=== PATIENT | female | born 1985 | race Caucasian/White ===

== ENCOUNTER 2017-06-18 20:15 | Emergency (ER) | payer BC ==
[2017-06-18 20:39] VITALS: PULSE 96; BMI 36.0
--- NOTE | 2017-06-18 21:15 | PDOC ---
History of Present Illness - General Chief Complaint: Cold Symptoms Stated Complaint: COLD SYMPTOMS (23 weeks ) Time Seen by Provider: 06/18/17 20:55 History Source: Patient Exam Limitations: No Limitations - History of Present Illness Initial Comments: 06/18/17 21:11 31-year-old female currently 23 weeks presents with URI symptoms including nasal congestion, sinus pressure, sore throat, cough and bilateral ear pain. Patient has no going to shortness of breath, abdominal pain, urinary complaints and states is also here to check the baby since she states has not felt the baby move today which she states she feels on a daily basis. Patient notified her PAPERBACK MACHINE OPERATOR Dr. Patel who recommended she go to L&D following influenza swabbing. Timing/Duration: reports: other (2 days) Associated Symptoms: reports: earache, headache, nasal congestion, sore throat Past History - Travel Traveled outside of the country in the last 30 days: No - Past Medical History Allergies/Adverse Reactions: Allergies Allergy/AdvReac Type Severity Reaction Status Date / Time No Known Allergies Allergy Verified 06/18/17 20:39 Home Medications: Ambulatory Orders Vit/Iron Fum/Folic AC [ Tablet] 1 each PO DAILY 04/26/15 - Reproductive History (#): 2 Para: 1 - Immunization History Immunization Up to Date: Yes - Suicide/Smoking/Psychosocial Hx Smoking Status: Yes Smoking History: Never smoked Have you smoked in the past 12 months: No Number of Cigarettes Smoked Daily: 0 If you are a former smoker, when did you quit?: 2012 Information on smoking cessation initiated: No Hx Alcohol Use: No Drug/Substance Use Hx: No Patient Lives Alone: No Lives with/in: spouse/SO Review of Systems - Review of Systems Able to Perform ROS?: No Constitutional: No: Symptoms Reported HEENTM: Yes: Ear Pain, Nose Congestion, Throat Pain Respiratory: No: Symptoms reported Cardiac (ROS): No: Symptoms Reported ABD/GI: No: Symptoms Reported : No: Symptoms Reported Musculoskeletal: No: Symptoms Reported Integumentary: No: Symptoms Reported Neurological: No: Symptoms reported Hematologic/Lymphatic: No: Symptoms Reported *Physical Exam - Vital Signs Last Vital Signs Temp Pulse Resp BP Pulse Ox 98.6 F 96 H 16 118/67 100 06/18/17 20:37 06/18/17 20:37 06/18/17 20:37 06/18/17 20:37 06/18/17 20:37 - Physical Exam General Appearance: Yes: Nourished, Appropriately Dressed. No: Apparent Distress HEENT: positive: EOMI, ALFREDO, TMs Normal, Pharynx Normal, Nasal Congestion, Sinus Tenderness (mild frontal). negative: Normal ENT Inspection Neck: positive: Supple Respiratory/Chest: positive: Lungs Clear, Normal Breath Sounds. negative: Respiratory Distress, Accessory Muscle Use Cardiovascular: positive: Regular Rhythm, Regular Rate. negative: Murmur Integumentary: positive: Normal Color, Warm, Moist Neurologic: positive: Normal Mood/Affect, Motor Strength 5/5 (ambulatory) Medical Decision Making - Medical Decision Making 06/18/17 21:14 Patient here for evaluation of URI symptoms along with check for movement. Patient is followed by Dr. Patel and was sent here for evaluation for flu and then to go to the burn delivery patient exam appeared to have sinus pressure along with allergic rhinitis . influenza swab sent. Once results and will proceed to L&D 06/18/17 21:45 Influenza swab negative. Patient will be sent to L&D for assessment. *DC/Admit/Observation/Transfer Diagnosis at time of Disposition: Nasal congestion - Discharge Dispostion Disposition: HOME Condition at time of disposition: Good - Referrals Referrals: Tiffany Mendes MD [Staff Physician] - Sabine Abbasi MD [Primary Care Provider] - - Patient Instructions Printed Discharge Instructions: DI for Common Cold Additional Instructions: At this time the influenza swab was negative I do recommend taking Tylenol. If you Develop any discomfort along with Claritin for nasal congestion which you may purchase [id number]. You will go directly to L&D upon emergency room discharge L&D: DISCHARGE INSTRUCTIONS: REST AT HOME DIET TOLERATED INCREASE FLUID BY MOUTH CALL MD IF NEEDED RETURN TO HOSPITAL IF: REGULAR CONTRACTIONS DECREASED MOVEMENT RUPTURE OF MEMBRANES VAGINAL BLEEDING - Post Discharge Activity
[2017-06-18 22:24] VITALS: BP 122/79; TEMP 98.7
== END 2017-06-18 23:03 | disposition home or self-care (01) ==
LOC: JER 20:15
DX: O99.512 Diseases of the respiratory system complicating pregnancy, second trimester (principal); J00 Acute nasopharyngitis [common cold]; Z3A.22 22 weeks gestation of pregnancy
CPT/HCPCS: 87804; 99281-25

== ENCOUNTER 2017-10-05 10:00 | Inpatient (IN) | payer BC ==
[2017-10-05] MEDS ORDERED: ELECTROLYTE-148 SOLN 1,000 ML IV SCH ×2 (10:20→11:20)
[2017-10-05] MEDS ORDERED: CITRIC ACID/SODIUM CITRATE 30 ML UNIT-DOSE CUP PO ONE (10:20)
[2017-10-05 10:52] VITALS: BMI 41.1
--- NOTE | 2017-10-05 10:55 | HP ---
Past Medical History - Admission Chief Complaint: Here for repeat delivery History of Present Illness: 31 y/o with h/o c section X 2 here at 39 weeks for scheduled repeat delivery. complicated only by maternal obesity. Pt desires tubal sterlilization. Limitations to Obtaining History: No Limitations - Past Medical History Cardiovascular: No: AFIB, HTN Gastrointestinal: No: Constipation Hepatobiliary: No: Hepatitis B, Hepatitis C Renal/: No: Hematuria, UTI Reproductive: No: Ectopic , Fibroids, Polycystic Ovary Syndrome ...Para: 2 ... Weeks Gestation by Dates: 39 ...EDC by Dates: 10/12/17 Heme/Onc: No: Anemia Infectious Disease: No: HIV, MRSA, STD's Psych: No: Anxiety, Bipolar Endocrine: No: Diabetes Mellitus, Hyperparathyroidism, Hyperthyroidism - Past Surgical History Past Surgical History: Yes: (X2) Hx Myomectomy: No Hx Transabdominal Cerclage: No - Smoking History Smoking history: Never smoked Have you smoked in the past 12 months: No Aproximately how many cigarettes per day: 0 If you are a former smoker, when did you quit?: 2013 - Alcohol/Substance Use Hx Alcohol Use: No - Social History Usual Living Arrangement: Yes: With Spouse ADL: Independent History of Recent Travel: No Home Medications - Allergies Allergies/Adverse Reactions: Allergies Allergy/AdvReac Type Severity Reaction Status Date / Time No Known Allergies Allergy Verified 09/22/17 20:15 - Home Medications Home Medications: Ambulatory Orders Vit/Iron Fum/Folic AC [ Tablet] 1 each PO DAILY 04/26/15 Review of Systems - Review of Systems Constitutional: reports: No Symptoms Eyes: reports: No Symptoms HENT: reports: No Symptoms Neck: reports: No Symptoms Cardiovascular: reports: No Symptoms Respiratory: reports: No Symptoms Gastrointestinal: reports: No Symptoms Genitourinary: reports: No Symptoms Breasts: reports: No Symptoms Reported Musculoskeletal: reports: No Symptoms Integumentary: reports: No Symptoms Neurological: reports: No Symptoms Endocrine: reports: No Symptoms Hematology/Lymphatic: reports: No Symptoms Psychiatric: reports: No Symptoms Physical Exam - Maternity Constitutional: Yes: Well Nourished, No Distress, Calm Eyes: Yes: Conjunctiva Clear, EOM Intact HENT: Yes: Atraumatic, Normocephalic Neck: Yes: Supple, Trachea Midline Cardiovascular: Yes: Regular Rate and Rhythm Lungs: Clear to auscultation - Abdominal Exam/OB Number of Fetuses: Single Presentation: Vertex Contractions: No - Vaginal Exam/OB Presentation: Vertex/Position - Physical Exam Psychiatric: Yes: Alert, Oriented Hemorrhage Risk Assessment - Risk Factors Medium Risk Factors: Yes: Prior , uterine surgery,or multiple laparotomies, Obesity (BMI >40) High Risk Factors: Yes: None Risk Score: 2 Risk Level: High Risk Problem List - Problems (1) History of delivery Code(s): Z98.891 - HISTORY OF UTERINE SCAR FROM PREVIOUS SURGERY (2) Obesity affecting Code(s): O99.210 - OBESITY COMPLICATING , UNSPECIFIED TRIMESTER (3) Term , repeat Code(s): Z34.90 - ENCNTR FOR SUPRVSN OF NORMAL , UNSP, UNSP TRIMESTER Assessment/Plan 31 y/o with SIUP at 39 weeks for scheduled repeat section and tubal sterilization AFVSS FHTS cat 1 NPO, Juarez catheter Anesthesia/nursery aware risks/benefits/alternatives discussed, consents signed
[2017-10-05] MEDS ORDERED: TUBERCULIN PPD 5 TU/0.1ML SYRINGE (IN PATIENT USE ONLY) ID ONE (11:30)
[2017-10-05] MEDS ORDERED: OXYTOCIN 20 UNITS in 0.9% NS 20 UNIT/1,000 ML INFUS.BAG IV ONE (11:42)
[2017-10-05] MEDS ORDERED: ceFAZolin SODIUM 1 GM VIAL ONE (11:45)
[2017-10-05] MEDS ORDERED: PHENYLEPHRINE HCL 10 MG/1 ML SINGLE DOSE VIAL ONE (11:45)
[2017-10-05] MEDS ORDERED: morphine SULFATE/Preservative Free 0.5 MG/ML (1cc Syringe) ONE (11:47)
[2017-10-05] MEDS ORDERED: ePHEDrine SULFATE 50 MG/1 ML AMPULE ONE (11:50)
[2017-10-05] MEDS ORDERED: SENNOSIDES/DOCUSATE COMBO (SENNA PLUS) TABLET (UD) PO PRN (11:53)
[2017-10-05] MEDS ORDERED: METHYLERGONOVINE MALEATE 0.2 MG/1 ML AMP IM PRN (11:53)
[2017-10-05] MEDS ORDERED: oxyCODONE HCL 5 MG TABLET PO PRN ×2 (11:53)
[2017-10-05] MEDS ORDERED: BUPIVACAINE 0.75% IN DEXTROSE/PF 2ML AMPULE NR ONE (11:57)
[2017-10-05] MEDS ORDERED: OXYTOCIN 20 UNITS in 0.9% NS 20 UNIT/1,000 ML INFUS.BAG IV SCH (12:00)
[2017-10-05] MEDS ORDERED: OXYTOCIN 10 UNITS/ML VIAL ONE (12:16)
[2017-10-05] MEDS ORDERED: morphine SULFATE/Preservative Free 0.5 MG/ML (1cc Syringe) SPIN ONE (12:29)
[2017-10-05] MEDS ORDERED: ONDANSETRON 4 MG/2 ML VIAL IVPUSH PRN (12:29)
--- NOTE | 2017-10-05 12:57 | OP ---
Operative Note - Note: Operative Date: 10/05/17 Pre-Operative Diagnosis: prior X 2, desire for permanent sterilization Operation: repeat LTCS, bilateral tubal ligation (modified yazmin) Findings: normal b/l tubes and ovaries Lower uterine segment window Post-Operative Diagnosis: Same as Pre-op Surgeon: Ivette Hoffman Carrier Driver: Franklin Ortega Anesthesiologist/LIGHT FIXTURE SERVICER: Yohan Mosley Anesthesia: Spinal Specimens Removed: placenta Estimated Blood Loss (mls): 500 Operative Report Dictated: Yes
[2017-10-05] MEDS: IBUPROFEN 800 MG/8 ML IJ IVPB PRN ×2 (14:00→22:31)
--- NOTE | 2017-10-05 14:42 | OP ---
DATE OF OPERATION: 10/05/2017 PREOPERATIVE DIAGNOSES: Prior section x2. Single intrauterine at 39 weeks. Desire for sterilization. POSTOPERATIVE DIAGNOSES: Prior section x2. Single intrauterine at 39 weeks. Desire for sterilization. PROCEDURE: Repeat low transverse section and bilateral tubal ligation with modified Reed technique. SURGEON: Ivette Mares MD PROCESS PROJECT ENGINEER: HERSON Bates ANESTHESIA: Spinal, by Dr. Yohan Mosley COMPLICATIONS: None. ESTIMATED BLOOD LOSS: 500 mL FINDINGS: Included normal bilateral tubes and ovaries, lower uterine segment window. SPECIMENS: Placenta. COUNTS: Sponge, needle, and instrument count correct. DISPOSITION: Stable to PACU. BRIEF HISTORY AND PROCEDURE: Patient is a 31-year-old female who had been seen in the office for her care and has 2 prior deliveries. Patient elected to undergo repeat delivery and the patient signed consent for the procedure. Upon admission on October 05, 2017, patient signed consents for a repeat delivery as well as tubal ligation and was then taken back to the operating room and given spinal anesthesia by Dr. Yohan Mosley without any difficulty. She was placed in the dorsal supine position, prepped and draped in the usual sterile fashion. A Juarez catheter was placed under sterile condition. A hard timeout was performed. A Pfannenstiel skin incision was created in the skin with a scalpel using the same incision as her prior scar and this was carried down to the underlying layer of rectus fascia sharply. The fascia was incised on either side of the midline with the Bovie and the fascial incision was carried in a superior lateral direction sharply. The fascia was then tented upwards and dissected off the underlying layer of rectus muscle sharply and the musculature was identified and retracted laterally and the peritoneum was entered sharply. Some adhesions from the bladder to the lower uterine segment were appreciated and a lower uterine segment window was noted. At this point a bladder blade was inserted and a transverse incision approximately 4 cm above the lower uterine segment window was completed and this incision was extended in superior lateral direction bluntly. The infant was then delivered from the left occiput transverse position without difficulty. A nuchal cord x2 was noted. Bilateral shoulders and the remainder of the was delivered without difficulty. Delayed cord clamping for approximately 1 minute was completed. The cord was then clamped and cut, and the was taken over to the warmer to be assessed by the neonatology staff where scores of 9 and 9 were given. The placenta was then delivered with a 3-vessel cord and intact. It was manually extracted. The uterus was exteriorized from the abdomen and suctioned clear of all amniotic membrane and debris with a dry lap sponge. The hysterotomy was reapproximated in a double layer closure, first using No. 1 Vicryl in a running locked fashion, second using 0 Biosyn in a running locked fashion. Attention was then turned to the fallopian tubes. The right fallopian tube was identified and curetted at its fimbriated end. The midportion of the tube was elevated with a Denise clamp, and then a knuckle of tube approximately 3 cm in length was tied off and excised with Metzenbaum scissors. The same was repeated on the left fallopian tube. Posterior cul-de-sac was cleared of all blood clot and debris, and the uterus was placed back in the abdomen. Bilateral gutters inspected and cleared of all debris. Bilateral tubal ligation sites were again inspected and noted to be hemostatic. The hysterotomy was noted to be hemostatic. The peritoneum was then reapproximated using 2-0 chromic in a running fashion. The musculature was reapproximated using several interrupted sutures using 0-Biosyn suture and the fascia was reapproximated using 1 Vicryl suture in a running fashion. Subcutaneous tissue was irrigated and reapproximated using 1 Vicryl suture in a running fashion. The skin was reapproximated using 3-0 Vicryl in a subcuticular fashion. Steri-Strips were then applied. The patient tolerated the procedure well, is recovering in stable condition in the postop PACU area of the labor and delivery unit at the time of this dictation. IVETTE MARES DO /[id number]
[2017-10-05] MEDS: FERROUS SO4 325 MG TABLET (FP) PO SCH (17:50)
[2017-10-05] MEDS ORDERED: DIPHTH,PERTUSS(ACELL),TET 0.5 ML DISP.SYRIN IM ONE (20:30)
[2017-10-06] MEDS: SIMETHICONE 80 MG TAB.CHEW (FP) PO PRN ×6 (00:22→22:49)
[2017-10-06] MEDS: IBUPROFEN 600 MG TABLET (FP) PO PRN ×5 (05:56→22:51)
[2017-10-06] MEDS: ACETAMINOPHEN 325 MG TABLET (FP) PO PRN ×4 (05:57→22:49)
--- NOTE | 2017-10-06 06:37 | PN ---
Post Progress Note - Subjective Subjective: Pt seen/evaluated, doing well. Pain controlled with medication. Tolerating clear diet. Juarez drianing clear yellow urine. VB minimal. No CP/SOB/F/C/SALCIDO Type of Delivery: Repeat C/S Vital Signs: Vital Signs Temperature 98.5 F 10/06/17 04:00 Pulse Rate 96 H 10/06/17 04:00 Respiratory Rate 18 10/06/17 06:00 Blood Pressure 104/67 10/06/17 04:00 O2 Sat by Pulse Oximetry (%) 99 10/05/17 21:00 Breast Exam: Yes: Soft Uterus: Yes: Fundus Firm Incision: Yes: Dressing dry and intact Abdomen/GI: Yes: Abdomen soft, Passing flatus, Tolerating PO. No: Abdominal Distention Lochia: Yes: Rubra Lochia, amount: Small Extremities: Yes: Calves non-tender. No: Calf tenderness Perineum: Yes: Intact Problem List - Problems (1) History of delivery Code(s): Z98.891 - HISTORY OF UTERINE SCAR FROM PREVIOUS SURGERY (2) Obesity affecting Code(s): O99.210 - OBESITY COMPLICATING , UNSPECIFIED TRIMESTER (3) Term , repeat Code(s): Z34.90 - ENCNTR FOR SUPRVSN OF NORMAL , UNSP, UNSP TRIMESTER Assessment/Plan POD#1 s/p repeat c section AFVSS CBC pending encourage ambluation regular diet PO pain meds
[2017-10-06] MEDS: FERROUS SO4 325 MG TABLET (FP) PO SCH ×2 (08:07→18:03)
[2017-10-06 08:19] LABS: BASO % 0.2 % (0-2.0); EOS % 0.4 % (0-4.5); HEMATOCRIT 30.3 % (32.4-45.2); HEMOGLOBIN 10.5 GM/dL (10.7-15.3); LYMPH % 11.2 % (8-40); MCH 30.2 pg (25.7-33.7); MCHC 34.7 g/dl (32.0-36.0); MEAN CELL VOLUME 87.2 fl (80-96); MONO % 7.7 % (3.8-10.2); NEUT % 80.5 % (42.8-82.8); PLATELET COUNT 116 K/MM3 (134-434); RBC 3.48 M/mm3 (3.60-5.2); RDW 14.7 % (11.6-15.6); WHITE BLOOD COUNT 7.1 K/mm3 (4.0-10.0)
[2017-10-06] MEDS: ENOXAPARIN NA (PORCINE) 40 MG/0.4 ML DISP.SYRIN SQ SCH (10:15)
[2017-10-06] MEDS: PRENATAL VITAMINS W/ FOLIC ACID TABLET (FP) PO SCH (10:15)
--- NOTE | 2017-10-06 10:53 | PN ---
Progress Note (short form) - Note Progress Note: Anesthesia postop note 31y/o F s/p spinal anesthesia , duramorph for section and btl POD#1, vss, aaox3, pain well controlled, sensory motor intact bilateral No anesthesia complications.
[2017-10-06] MEDS ORDERED: BISACODYL 10 MG SUPP.RECT RC PRN (11:53)
[2017-10-07] MEDS: IBUPROFEN 600 MG TABLET (FP) PO PRN ×4 (08:18→21:49)
[2017-10-07] MEDS: SIMETHICONE 80 MG TAB.CHEW (FP) PO PRN ×2 (08:18→21:49)
[2017-10-07] MEDS: FERROUS SO4 325 MG TABLET (FP) PO SCH ×2 (08:19→17:39)
--- NOTE | 2017-10-07 08:50 | PN ---
Progress Note (SOAP) - Subjective Chief Complaint: Pt doing well concerned about baby latching - Current Medications Current Medications: Active Medications Acetaminophen (Tylenol -) 650 mg PO Q4H PRN PRN Reason: FEVER Last Admin: 10/06/17 22:49 Dose: 650 mg Bisacodyl (Dulcolax Suppository -) 10 mg RC PRN PRN PRN Reason: CONSTIPATION Diphenhydramine HCl (Benadryl Injection -) 25 mg IVPUSH Q4H PRN PRN Reason: Pruritis Enoxaparin Sodium (Lovenox -) 40 mg SQ DAILY [facility] Last Admin: 10/06/17 10:15 Dose: 40 mg Ferrous Sulfate (Feosol -) 325 mg PO BIDWM [facility] Last Admin: 10/07/17 08:19 Dose: 325 mg Ibuprofen (Motrin -) 600 mg PO Q4H PRN PRN Reason: PAIN LEVEL 1 - 3 Last Admin: 10/07/17 08:18 Dose: 600 mg Ibuprofen (Caldolor Injection -) 800 mg IVPB Q8H PRN PRN Reason: PAIN LEVEL 7-10 Last Admin: 10/05/17 22:31 Dose: 800 mg Methylergonovine Maleate (Methergine Injection -) 0.2 mg IM Q4H PRN PRN Reason: Excessive Bleeding (L&D) Last Admin: 10/05/17 22:51 Dose: 0.2 mg Ondansetron HCl (Zofran Injection) 4 mg IVPUSH Q4H PRN PRN Reason: NAUSEA Last Admin: 10/05/17 13:25 Dose: 4 mg Oxycodone HCl (Roxicodone -) 10 mg PO Q4H PRN PRN Reason: PAIN 7 - 10;IF CALDOR NT WORK Last Admin: 10/07/17 08:17 Dose: 10 mg Oxycodone HCl (Roxicodone -) 5 mg PO Q4H PRN PRN Reason: PAIN LEVEL 4 - 6 Last Admin: 10/06/17 10:15 Dose: 5 mg Multivit/Folic Acid/Iron ( Vitamins (Sjr) -) 1 tab PO DAILY [facility] Last Admin: 10/06/17 10:15 Dose: 1 tab Senna/Docusate Sodium (Pericolace -) 2 tablet PO HS PRN PRN Reason: CONSTIPATION Last Admin: 10/06/17 20:35 Dose: 2 tablet Simethicone (Mylicon -) 80 mg PO Q4H PRN PRN Reason: GAS Last Admin: 10/07/17 08:18 Dose: 80 mg - Objective Vital Signs: Vital Signs Temperature 98.1 F 10/06/17 21:46 Pulse Rate 98 H 10/06/17 21:46 Respiratory Rate 18 10/06/17 21:46 Blood Pressure 114/62 10/06/17 21:46 O2 Sat by Pulse Oximetry (%) 99 10/05/17 21:00 Constitutional: Yes: Well Nourished, No Distress Neck: Yes: WNL Respiratory: Yes: WNL, Regular Gastrointestinal: Yes: WNL, Soft, Abdomen, Obese ....Post : Yes: Uterus firm, Uterus non-tender Breast(s): Yes: WNL Musculoskeletal: Yes: WNL Extremities: Yes: WNL Edema: Yes Edema: LLE: Trace, RLE: Trace Wound/Incision: Yes: Dressing Dry and Intact Psychiatric: Yes: WNL, Alert, Oriented Labs Lab Results: CBC, BMP 10/06/17 07:15 Problem List - Problems (1) History of delivery Code(s): Z98.891 - HISTORY OF UTERINE SCAR FROM PREVIOUS SURGERY Assessment/Plan SP CS POD 2 Stable Plan DC dressing oob ambulate cont present management
[2017-10-07] MEDS: PRENATAL VITAMINS W/ FOLIC ACID TABLET (FP) PO SCH (10:48)
[2017-10-07] MEDS: ENOXAPARIN NA (PORCINE) 40 MG/0.4 ML DISP.SYRIN SQ SCH (10:48)
[2017-10-07] MEDS: ACETAMINOPHEN 325 MG TABLET (FP) PO PRN ×3 (12:36→21:49)
--- NOTE | 2017-10-07 14:55 | PATH ---
Surgical Pathology Report Patient Name: MARÍA ELENA ADAMS [facility]. Rec. #: [id number] /Age/Gender: 1985 (Age: 31) / F Account: [id number] Location: [facility] OBS/CARAMEL CANDY MAKER HELPER Taken: 10/05/2017 Received: 10/06/2017 Reported: 10/07/2017 Physicians: Ivette Hoffman M.D. Specimen(s) Received A: PLACENTA B: PORTION OF RIGHT FALLOPIAN TUBE C: PORTION OF LEFT FALLOPIAN TUBE Clinical History , previous x2, 39 weeks gestation Abdominal hernia diagnosis with Final Diagnosis A. PLACENTA: THIRD TRIMESTER PLACENTA. TRIVASCULAR CORD. MEMBRANES WITH NO DIAGNOSTIC ABNORMALITIES. B. PORTION OF RIGHT FALLOPIAN TUBE, RESECTION: COMPLETE CROSS SECTION OF THE FALLOPIAN TUBE IDENTIFIED. C. PORTION OF LEFT FALLOPIAN TUBE, RESECTION: COMPLETE CROSS SECTION OF THE FALLOPIAN TUBE IDENTIFIED. Electronically Signed Deyanira Marcelino M.D. Gross Description A. The specimen is received fresh labeled placenta and is a 399 gram, 20.0 x 14.0 x 1.7 cm. placenta with attached membranes and umbilical cord. The attached membranes are neal, translucent with focal opacities and insert marginally. The umbilical cord measures 36.5 cm. in length and averages 0.9 cm. in diameter. The cord inserts eccentrically, 3 cm. to the nearest margin. No true knots or strictures are identified. Cut surface of the umbilical cord reveals 3 vessels. The surface is jenkins-blue with minimal fibrin deposition and appropriate caliber vessels. The maternal surface is red-brown with focal defects. Sectioning reveals red-brown, spongy parenchyma. No lesions are identified. Metal Wire Technician sections are submitted in three cassettes as follows: 1- membrane rolls and umbilical cord; 2-3- full thickness sections of placenta. B. Received in formalin labeled "portion of right fallopian tube," is a 1.8 cm in length portion of fallopian tube. No fimbria are present. The outer surface is neal-pink and smooth. Sectioning reveals an unremarkable lumen. Metal Wire Technician sections are submitted in one cassette. C. Received in formalin labeled "portion of left fallopian tube," is a 1.8 cm in length portion of fallopian tube. No fimbria are present. The outer surface is neal-pink and smooth. Sectioning reveals an unremarkable lumen. Metal Wire Technician sections are submitted in one cassette. 10/06/2017 [facility]10/06/2017
[2017-10-08] MEDS: IBUPROFEN 600 MG TABLET (FP) PO PRN ×2 (05:21→09:16)
[2017-10-08] MEDS: ACETAMINOPHEN 325 MG TABLET (FP) PO PRN ×2 (05:21→09:17)
[2017-10-08] MEDS: SIMETHICONE 80 MG TAB.CHEW (FP) PO PRN (05:21)
[2017-10-08 08:01] LABS: BASO % 0.4 % (0-2.0); EOS % 1.2 % (0-4.5); HEMATOCRIT 27.2 % (32.4-45.2); HEMOGLOBIN 9.3 GM/dL (10.7-15.3); LYMPH % 19.3 % (8-40); MCH 30.1 pg (25.7-33.7); MCHC 34.2 g/dl (32.0-36.0); MEAN CELL VOLUME 88.1 fl (80-96); MEAN PLT VOLUME 8.4 fl (7.5-11.1); MONO % 8.3 % (3.8-10.2); NEUT % 70.8 % (42.8-82.8); PLATELET COUNT 138 K/MM3 (134-434); RBC 3.08 M/mm3 (3.60-5.2); RDW 15.1 % (11.6-15.6); WHITE BLOOD COUNT 5.7 K/mm3 (4.0-10.0)
[2017-10-08] MEDS: FERROUS SO4 325 MG TABLET (FP) PO SCH (09:14)
[2017-10-08] MEDS: PRENATAL VITAMINS W/ FOLIC ACID TABLET (FP) PO SCH (09:14)
[2017-10-08] MEDS: ENOXAPARIN NA (PORCINE) 40 MG/0.4 ML DISP.SYRIN SQ SCH (09:14)
--- NOTE | 2017-10-08 09:19 | PN ---
Progress Note (SOAP) - Current Medications Current Medications: Active Medications Acetaminophen (Tylenol -) 650 mg PO Q4H PRN PRN Reason: FEVER Last Admin: 10/08/17 05:21 Dose: 650 mg Bisacodyl (Dulcolax Suppository -) 10 mg RC PRN PRN PRN Reason: CONSTIPATION Diphenhydramine HCl (Benadryl Injection -) 25 mg IVPUSH Q4H PRN PRN Reason: Pruritis Enoxaparin Sodium (Lovenox -) 40 mg SQ DAILY [facility] Last Admin: 10/07/17 10:48 Dose: 40 mg Ferrous Sulfate (Feosol -) 325 mg PO BIDWM [facility] Last Admin: 10/07/17 17:39 Dose: 325 mg Ibuprofen (Motrin -) 600 mg PO Q4H PRN PRN Reason: PAIN LEVEL 1 - 3 Last Admin: 10/08/17 05:21 Dose: 600 mg Ibuprofen (Caldolor Injection -) 800 mg IVPB Q8H PRN PRN Reason: PAIN LEVEL 7-10 Last Admin: 10/05/17 22:31 Dose: 800 mg Methylergonovine Maleate (Methergine Injection -) 0.2 mg IM Q4H PRN PRN Reason: Excessive Bleeding (L&D) Last Admin: 10/05/17 22:51 Dose: 0.2 mg Ondansetron HCl (Zofran Injection) 4 mg IVPUSH Q4H PRN PRN Reason: NAUSEA Last Admin: 10/05/17 13:25 Dose: 4 mg Oxycodone HCl (Roxicodone -) 10 mg PO Q4H PRN PRN Reason: PAIN 7 - 10;IF CALDOR NT WORK Last Admin: 10/07/17 08:17 Dose: 10 mg Oxycodone HCl (Roxicodone -) 5 mg PO Q4H PRN PRN Reason: PAIN LEVEL 4 - 6 Last Admin: 10/06/17 10:15 Dose: 5 mg Multivit/Folic Acid/Iron ( Vitamins (Sjr) -) 1 tab PO DAILY [facility] Last Admin: 10/07/17 10:48 Dose: 1 tab Senna/Docusate Sodium (Pericolace -) 2 tablet PO HS PRN PRN Reason: CONSTIPATION Last Admin: 10/06/17 20:35 Dose: 2 tablet Simethicone (Mylicon -) 80 mg PO Q4H PRN PRN Reason: GAS Last Admin: 10/08/17 05:21 Dose: 80 mg - Objective Vital Signs: Vital Signs Temperature 98.2 F 10/07/17 22:00 Pulse Rate 98 H 10/07/17 22:00 Respiratory Rate 18 10/07/17 22:00 Blood Pressure 112/70 10/07/17 22:00 O2 Sat by Pulse Oximetry (%) 99 10/05/17 21:00 Constitutional: Yes: Well Nourished, No Distress Neck: Yes: WNL Cardiovascular: Yes: WNL Respiratory: Yes: WNL, Regular Gastrointestinal: Yes: WNL ....Post : Yes: Uterus firm, Uterus non-tender Labs Lab Results: CBC, BMP 10/08/17 07:00 Problem List - Problems (1) History of delivery Code(s): Z98.891 - HISTORY OF UTERINE SCAR FROM PREVIOUS SURGERY Assessment/Plan SP CS POD 3 Stable Plan percocet rto 1 wk
[2017-10-08 09:51] VITALS: BP 116/74; PULSE 85; TEMP 98
--- NOTE | 2017-10-09 08:49 | DS ---
Physical Exam-TRAVELING FREIGHT AGENT Vital Signs: Vital Signs Temperature 98 F 10/08/17 09:43 Pulse Rate 85 10/08/17 09:43 Respiratory Rate 20 10/08/17 09:43 Blood Pressure 116/74 10/08/17 09:43 O2 Sat by Pulse Oximetry (%) 99 10/05/17 21:00 Constitutional: Yes: Well Nourished, No Distress Respiratory: Yes: WNL Gastrointestinal: Yes: WNL Pelvis: Yes: WNL ....Post : Yes: Uterus firm, Uterus non-tender Wound/Incision: Yes: Steri Strips, Open to air Psychiatric: Yes: WNL, Alert, Oriented Labs: CBC, BMP 10/08/17 07:00 Delivery - Delivery Section: Low Flap Transverse Type of Anesthesia: Spinal EBL (cc): 500 Delivery, Single - Stages of Labor Date of Delivery: 10/05/17 Time of Delivery: 12:21 Time Placenta Delivered: 12:22 - Condition of Infant President And Chief Commercial Officer/Systems Programmer Analyst Present: Yes Name: Daniel Dillon Gender: Female Weight: 7 lb 6 oz Total Hours ROM (Hrs/Mins): 2 minutes - 1 Minute Total Score: 9 5 Minutes Total Score: 9 - [place] Feeding Plan Initial Plan: Exclusive throughout hospitalization Discharge Summary Reason For Visit: Procedures: Principal: Section Condition: Good - Instructions Diet, Activity, Other Instructions: Physical activity Resume your normal everyday activity as tolerated no heavy lifting or exercise until seen by your surgeon. You may walk unlimited amounts and climb stairs. You may resume driving the car when you feel safe and comfortable behind the wheel. No sexual activity as instructed. Wound care If there are tapes on the skin leave them in place. They will peel off in the next 7 to 10 days. Do Not Peel them off. You may shower the day after surgery. If there are tapes present on the skin, you may shower over them. Diet There are no dietary restrictions. Eat healthy, high-fiber foods. Drink 6 to 8 glasses of liquid each day. This will assist in keeping your bowels regular. Pain management You may take Tylenol or Ibuprofen (for example, Motrin, Advil etc.) for mild pain -if any pain prescription medication is ordered should be taken as prescribed for moderate to severe pain. Call for any of the following: Severe pain not relieved by medication Fever of 101 or higher Excessive bleeding or drainage on dressing Inability to urinate Referrals: Ivette Hoffman DO [Staff Physician] - 1 Week (to check incision) Disposition: HOME - Home Medications Comprehensive Discharge Medication List: Ambulatory Orders Vit/Iron Fum/Folic AC [ Tablet] 1 each PO DAILY 04/26/15
== END 2017-10-08 11:50 | disposition home or self-care (01) | DRG 765 ==
LOC: JLDR 10:10 → J3W 15:20
PROVIDERS: ADMIT Obstetrics & Gynecology; ATTEND Obstetrics & Gynecology
PROC: 10D00Z1 Extraction of Products of Conception, Low, Open Approach (ICD-10-PCS; principal; 2017-10-05)
PROC: 0UL70DZ Occlusion of Bilateral Fallopian Tubes with Intraluminal Device, Open Approach (ICD-10-PCS; 2017-10-05)
DX: O34.211 Maternal care for low transverse scar from previous cesarean delivery (principal); Z68.41 Body mass index [BMI] 40.0-44.9, adult; O69.81X0 Labor and delivery complicated by cord around neck, without compression, not applicable or unspecified; O99.213 Obesity complicating pregnancy, third trimester; E66.9 Obesity, unspecified; Z3A.39 39 weeks gestation of pregnancy; Z37.0 Single live birth; Z30.2 Encounter for sterilization
CPT/HCPCS: 36415; 85025; 86850; 86900; 86901; 88302-TC; 88307-TC; 90715

== ENCOUNTER 2017-12-03 20:56 | Emergency (ER) | payer BC ==
[2017-12-03 21:00] VITALS: BP 117/78; PULSE 76; TEMP 97.8; BMI 37.4
--- NOTE | 2017-12-03 21:02 | PDOC ---
History of Present Illness - General Chief Complaint: Pain Stated Complaint: HERNIA Time Seen by Provider: 12/03/17 21:02 History Source: Patient Exam Limitations: No Limitations - History of Present Illness Initial Comments: 12/03/17 21:22 31 year old female A0 with PMH umbilical hernia presenting to ED for abdominal pain x1 hour. She states she was lifting her 2 year old when she felt a pop, and her abdomen began to hurt. She describes her pain as burning, located to the umbilicus, alleviated by lying flat and applying pressure to the area, aggravated by movement and removing pressure from the area, radiating to her back, 7-8/10. She admits to nausea. She denies fever, chills, vomiting, diarrhea, chest pain, shortness of breath, vaginal bleeding, dysuria. She states that she is breast feeding. OB - Dr. Hoffman Past History - Past Medical History Allergies/Adverse Reactions: Allergies Allergy/AdvReac Type Severity Reaction Status Date / Time No Known Allergies Allergy Verified 12/03/17 21:00 Home Medications: Ambulatory Orders Vit/Iron Fum/Folic AC [ Tablet] 1 each PO DAILY 04/26/15 Ibuprofen [Motrin -] 600 mg PO QID PRN #28 tablet 10/09/17 Asthma: No Cancer: No Cardiac Disorders: No COPD: No Diabetes: No HTN: No Seizures: No Thyroid Disease: No - Reproductive History (#): 2 Para: 1 - Immunization History Immunization Up to Date: Yes - Suicide/Smoking/Psychosocial Hx Smoking Status: Yes Smoking History: Never smoked Have you smoked in the past 12 months: No Number of Cigarettes Smoked Daily: 0 If you are a former smoker, when did you quit?: 2012 Hx Alcohol Use: No Drug/Substance Use Hx: No Hx Substance Use Treatment: No Review of Systems - Review of Systems Able to Perform ROS?: Yes Comments:: 12/03/17 21:50 General: denies fever, chills, night sweats, generalized weakness. HEENT: denies sore throat, rhinorrhea, ear pain. Heart: denies chest pain, palpitations, syncope, lower extremity swelling, diaphoresis. Respiratory: denies shortness of breath, cough, sputum production, hemoptysis. Abdomen: admits to abdominal pain, nausea. denies vomiting, diarrhea, constipation, blood in stool. : denies dysuria, increased urinary frequency, hematuria, urinary incontinence , flank pain, vaginal bleeding. Back: denies back pain. Musculoskeletal: denies joint pain, muscle pain, joint swelling. Neurological: denies headache, dizziness, numbness, tingling, weakness. Skin: denies rash, laceration, abrasion. *Physical Exam - Vital Signs Last Vital Signs Temp Pulse Resp BP Pulse Ox 97.8 F 76 18 117/78 98 12/03/17 20:59 12/03/17 20:59 12/03/17 20:59 12/03/17 20:59 12/03/17 20:59 - Physical Exam Comments: 12/03/17 21:51 Constitutional: Well-nourished, Well-developed, appearing stated age. obese. HEENT: head is normocephalic, atraumatic. EOMI. PERRLA. Neck: supple. Full ROM. Heart: regular rhythm. no murmurs, rubs or gallops. Lungs: clear to auscultation bilaterally. no crackles, rhonchi or wheezing. no stridor. Abdomen: soft, protuberant. tenderness to palpation of umbilicus. hernia palpated while pt was sitting up, will reduce. no hernia palpated while pt is lying flat, unable to feel muscle defect due to obesity. decreased bowel sounds. no rebound, guarding. Extremities: Peripheral pulses intact. No lower extremity edema. Neurological: CN 2-12 grossly intact. Moves all four extremities. Psych: awake, alert, oriented x3. Follows commands. Answers questions appropriately. ED Treatment Course - LABORATORY CBC & Chemistry Diagram: 12/03/17 21:40 12/03/17 21:40 Medical Decision Making - Medical Decision Making 12/03/17 21:49 31 year old female A0 with PMH umbilical hernia presenting to ED for abdominal pain x1 hour after lifting her two year old off the ground. Hernia palpated while pt was sitting up, would reduce, unclear if reduced completely. Unable to be palpated while lying flat, but unable to palpate muscle defect. Cannot rule out incarceration without imaging. I spoke with Dr. Moise, who advises CT A/P with IV and PO contrast if we cannot feel the defect in the muscle wall. I am unable to feel the defect due to obesity. - Pending CT - Pending CBC, CMP, T/S, lactate Initial Vital Signs Temp Pulse Resp BP Pulse Ox 97.8 F 76 18 117/78 98 12/03/17 20:59 12/03/17 20:59 12/03/17 20:59 12/03/17 20:59 12/03/17 20:59 Afebrile. No tachycardia. No hypotension. No hypoxia on room air. 12/03/17 22:20 CBC WBC 5.0 K/mm3 (4.0-10.0) 12/03/17 21:40 RBC 4.49 M/mm3 (3.60-5.2) 12/03/17 21:40 Hgb 12.8 GM/dL (10.7-15.3) 12/03/17 21:40 Hct 38.1 % (32.4-45.2) D 12/03/17 21:40 MCV 84.9 fl (80-96) 12/03/17 21:40 MCH 28.4 pg (25.7-33.7) 12/03/17 21:40 MCHC 33.5 g/dl (32.0-36.0) 12/03/17 21:40 RDW 15.3 % (11.6-15.6) 12/03/17 21:40 Plt Count 208 K/MM3 (134-434) D 12/03/17 21:40 MPV 8.1 fl (7.5-11.1) 12/03/17 21:40 Absolute Neuts (auto) 2.6 K/mm3 (1.5-8.0) 12/03/17 21:40 Neutrophils % 52.7 % (42.8-82.8) D 12/03/17 21:40 Lymphocytes % 34.1 % (8-40) D 12/03/17 21:40 Monocytes % 10.2 % (3.8-10.2) 12/03/17 21:40 Eosinophils % 2.5 % (0-4.5) D 12/03/17 21:40 Basophils % 0.5 % (0-2.0) 12/03/17 21:40 Nucleated RBC % 0 % (0-0) 12/03/17 21:40 CMP Sodium 141 mmol/L (136-145) 12/03/17 21:40 Potassium 3.9 mmol/L (3.5-5.1) 12/03/17 21:40 Chloride 108 mmol/L (98-107) H 12/03/17 21:40 Carbon Dioxide 22 mmol/L (21-32) 12/03/17 21:40 Anion Gap 11 MMOL/L (8-16) 12/03/17 21:40 BUN 17 mg/dL (7-18) 12/03/17 21:40 Creatinine 0.8 mg/dL (0.55-1.3) 12/03/17 21:40 Creat Clearance w eGFR > 60 (>60) 12/03/17 21:40 Random Glucose 92 mg/dL (74-106) 12/03/17 21:40 Calcium 8.9 mg/dL (8.5-10.1) 12/03/17 21:40 Total Bilirubin 0.4 mg/dL (0.2-1) 12/03/17 21:40 AST 12 U/L (15-37) L 12/03/17 21:40 ALT 52 U/L (13-61) 12/03/17 21:40 Alkaline Phosphatase 99 U/L (45-117) 12/03/17 21:40 Total Protein 6.9 g/dl (6.4-8.2) 12/03/17 21:40 Albumin 3.7 g/dl (3.4-5.0) 12/03/17 21:40 INR, PTT INR 0.96 (0.83-1.09) 12/03/17 21:40 No leukocytosis. No anemia. No electrolyte abnormalities. No transaminitis. 12/03/17 22:35 Pt reassessed, reports 0/10 pain. Abdominal examination: soft, minimal tenderness to palpation of umbilical area. Urine Test Results Urine Color Ltyellow 12/03/17 22:10 Urine Appearance Clear 12/03/17 22:10 Urine pH 6.0 (5.0-8.0) 12/03/17 22:10 Ur Specific Williams 1.015 (1.001-1.035) 12/03/17 22:10 Urine Protein Negative (NEGATIVE) 12/03/17 22:10 Urine Glucose (UA) Negative (NEGATIVE) 12/03/17 22:10 Urine Ketones Negative (NEGATIVE) 12/03/17 22:10 Urine Blood 1+ (NEGATIVE) H 12/03/17 22:10 Urine Nitrite Negative (NEGATIVE) 12/03/17 22:10 Urine Bilirubin Negative (<2.0 mg/dL) 12/03/17 22:10 Ur Leukocyte Esterase Negative (NEGATIVE) 12/03/17 22:10 Ur Epithelial Cells Rare /HPF (FEW) 12/03/17 22:10 No evidence of UTI. Urine test negative. 12/03/17 22:[address], stated that her pain has resolved and she does not want to stay in the Emergency Department. I discussed with her the risk of delaying imaging, and ultimately delaying surgical treatment, and she stated that she understood the risk and would return if pain returned or skin changes developed. Pt agrees to stay until Lactate result. 12/03/17 23:35 Lactate normal. Pt will be discharged with surgery referral, strict return precautions, and follow up instructions. 0/10 pain. No tenderness to palpation of abdomen. No hernia palpated at time of discharge. *DC/Admit/Observation/Transfer Diagnosis at time of Disposition: Abdominal pain - Discharge Dispostion Disposition: HOME Condition at time of disposition: Improved Decision to Admit order: No - Referrals Referrals: Noe Singletary [Primary Care Provider] - Abdifatah Moise MD [Staff Physician] - - Patient Instructions Printed Discharge Instructions: DI for Ventral Hernia Additional Instructions: You were seen today for abdominal pain. Your blood work was normal. You refused the CT abdomen, so at this time I am unable to rule out incarcerated hernia as a cause of your pain. I have provided a referral for you to see a surgeon, Dr. Moise. Call her office on tuesday and make an appointment for as soon as possible. Tell them you were seen in the Emergency Department. NO HEAVY LIFTING until you are seen and evaluated by Dr. Moise. Follow up with your primary care doctor within 5 days. Call their office on tuesday and make an appointment for as soon as possible. Tell them you were seen in the Emergency Department. Return to the Emergency Department for increasing pain, skin changes, nausea, vomiting, blood in stool, chest pain, shortness of breath or any other new, worsening or concerning symptoms. - Post Discharge Activity
--- NOTE | 2017-12-03 21:04 | PDOC ---
Attending Attestation - HPI HPI: 12/03/17 21:50 The patient is a 31 year old female (A0)- , 2 months ago, with a significant PMH of umbilical hernia who presents to the emergency department with abdominal pain since earlier today. The patient reports that she was at home doing some lifting when she subsequently experienced her abdominal pain. The patient states that her abdominal pain radiates to her back. And is alleviated when she applies pressure. The patient also reports some associated nausea. She denies any other symptoms. She denies any fever, chills, vomiting, diarrhea, constipation or urinary symptoms. She denies any chest pain, shortness of breath, headache or dizziness. The patient denies any other complaints. - Physicial Exam PE: 12/03/17 21:50 GENERAL: Awake, alert, and fully oriented, in no acute distress HEAD: No signs of trauma EYES: PERRLA, EOMI, sclera anicteric, conjunctiva clear ENT: Auricles normal inspection, hearing grossly normal, nares patent, oropharynx clear without exudates. Moist mucosa NECK: Normal ROM, supple, no lymphadenopathy, JVD, or masses LUNGS: Breath sounds equal, clear to auscultation bilaterally. No wheezes, and no crackles HEART: Regular rate and rhythm, normal S1 and S2, no murmurs, rubs or gallops ABDOMEN: (+)tenderness around umbilicus . hernia not felt when laying flat. Soft ,, normoactive bowel sounds. No guarding, no rebound. No masses EXTREMITIES: Normal range of motion, no edema. No clubbing or cyanosis. No cords, erythema, or tenderness NEUROLOGICAL: Cranial nerves II through XII grossly intact. Normal speech, normal gait SKIN: Warm, Dry, normal turgor, no rashes or lesions noted. Documentation prepared by Leta Cheek, acting as medical scheduler for Radha Nagel MD. <Leta Cheek - Last Filed: 12/03/17 21:50> - Resident Resident Name: Penelope Jacinto - ED Attending Attestation I have performed the following: I have examined & evaluated the patient, The case was reviewed & discussed with the resident, I agree w/resident's findings & plan - Medical Decision Making 12/03/17 21:47 Pt will have basic labs; case will be discussed with gen surg. Surg wants IV PO abd pelvis CT scan. 12/03/17 22:40 Labs are normal. 12/03/17 22:[address] scan pending. 12/03/17 23:[address] scan because she is afraid of IV contrast, as she is . She states that all of her pain resolved and she is feeling better and she wants to go home and follow with surgery as an outpatient. <Radha Nagel - Last Filed: 12/03/17 23:23>
[2017-12-03] MEDS ORDERED: ACETAMINOPHEN 1000 MG/100 ML VIAL (NON FORMULARY) IVPB ONE (21:25)
[2017-12-03] MEDS ORDERED: SODIUM CHLORIDE 1,000 ML IV STA (21:25)
[2017-12-03] MEDS ORDERED: ACETAMINOPHEN INJECTION 100 ML IVPB ONE (21:30)
[2017-12-03 21:50] LABS: BASO % 0.5 % (0-2.0); EOS % 2.5 % (0-4.5); HEMATOCRIT 38.1 % (32.4-45.2); HEMOGLOBIN 12.8 GM/dL (10.7-15.3); LYMPH % 34.1 % (8-40); MCH 28.4 pg (25.7-33.7); MCHC 33.5 g/dl (32.0-36.0); MEAN CELL VOLUME 84.9 fl (80-96); MEAN PLT VOLUME 8.1 fl (7.5-11.1); MONO % 10.2 % (3.8-10.2); NEUT % 52.7 % (42.8-82.8); PLATELET COUNT 208 K/MM3 (134-434); RBC 4.49 M/mm3 (3.60-5.2); RDW 15.3 % (11.6-15.6)
[2017-12-03 22:05] LABS: INR 0.96 (0.83-1.09); PROTHROMBIN TIME (PATIENT) 11.3 SEC (9.7-13.0)
[2017-12-03 22:07] LABS: ACTIVATED PTT 30.4 SECONDS (25.2-36.5)
[2017-12-03 22:14] LABS: ALBUMIN 3.7 g/dl (3.4-5.0); ALK PHOS 99 U/L (45-117); ANION GAP 11 MMOL/L (8-16); BILIRUBIN,TOTAL 0.4 mg/dL (0.2-1); BLOOD UREA NITROGEN 17 mg/dL (7-18); CALCIUM 8.9 mg/dL (8.5-10.1); CHLORIDE 108 mmol/L (98-107); CO2 22 mmol/L (21-32); CREATININE 0.8 mg/dL (0.55-1.3); GLUCOSE,RANDOM 92 mg/dL (74-106); POTASSIUM 3.9 mmol/L (3.5-5.1); SGOT/AST 12 U/L (15-37); SGPT/ALT 52 U/L (13-61); SODIUM 141 mmol/L (136-145); TOT PROT 6.9 g/dl (6.4-8.2)
[2017-12-03 22:22] LABS: URINE APPEARANCE CLEAR; URINE BILIRUBIN NEGATIVE (<2.0 mg/dL); URINE COLOR LTYELLOW; URINE GLUCOSE (UA) NEGATIVE (NEGATIVE); URINE KETONE NEGATIVE (NEGATIVE); URINE LEUK ESTERASE NEGATIVE (NEGATIVE); URINE NITRITE NEGATIVE (NEGATIVE); URINE PROTEIN NEGATIVE (NEGATIVE); URINE UROBILINOGEN NEGATIVE mg/dL (0.2-1.0)
[2017-12-03 22:27] LABS: EPI CELLS RARE /HPF (FEW)
== END 2017-12-04 00:04 | disposition home or self-care (01) ==
LOC: JER 20:56
PROC: 3E033NZ Introduction of Analgesics, Hypnotics, Sedatives into Peripheral Vein, Percutaneous Approach (ICD-10-PCS; principal; 2017-12-03)
DX: R10.30 Lower abdominal pain, unspecified (principal)
CPT/HCPCS: 36415; 80053; 81003; 81015; 83605; 84703; 85025; 85610; 85730; 86850; 86900; 86901; 99282-25; J0131; J7030